=== PATIENT | female | born 1980 | race Asian ===

== ENCOUNTER 2021-03-25 07:25 | Outpatient (CLI) | payer OTHER ==
[2021-03-25 12:00] LABS: BASOPHILS % (AUTO) 0.9 %; EOSINOPHILS % (AUTO) 0.9 %; HCT - HEMATOCRIT 34.4 % (37.0-47.0); HGB - HEMOGLOBIN 10.4 g/dL (12.0-16.0); LYMPHOCYTES # (AUTO) 1.5 10^3/uL (1.5-3.5); LYMPHOCYTES % (AUTO) 44.3 %; MEAN CORPUSCULAR HEMOGLOBIN 24.1 pg (27.0-31.0); MEAN CORPUSCULAR HGB CONC 30.2 g/dL (32.0-36.0); MEAN CORPUSCULAR VOLUME 79.6 fL (81.0-99.0); MEAN PLATELET VOLUME 9.7 fL (7.9-10.8); MONOCYTES # (AUTO) 0.3 10^3/uL (0.0-1.0); MONOCYTES % (AUTO) 8.8 %; NEUTROPHILS # (AUTO) 1.5 10^3/uL (1.5-6.6); NEUTROPHILS % (AUTO) 44.8 %; PLT - PLATELET COUNT 293 10^3/uL (130-450); RED BLOOD COUNT 4.32 10^6/uL (4.20-5.40); RED CELL DISTRIBUTION WIDTH 16.1 % (12.0-15.0); WHITE BLOOD COUNT 3.4 x10^3/uL (4.8-10.8)
[2021-03-25 12:20] LABS: T4 (THYROXINE) 7.86 ug/dL (6.09-12.23)
[2021-03-25 12:24] LABS: THYROID STIMULATING HORMONE 1.7 uIU/mL (0.34-5.60)
[2021-03-25 12:33] LABS: ALBUMIN 4.5 g/dL (3.2-5.5); ALBUMIN/GLOBULIN RATIO 1.1 (1.0-2.2); ALKALINE PHOSPHATASE 58 IU/L (42-121); ALT ALANINE AMINOTRANSFERASE 18 IU/L (10-60); AST ASPARTATE AMINOTRANSFERASE 22 IU/L (10-42); BILIRUBIN,TOTAL 0.5 mg/dL (0.2-1.0); BUN - BLOOD UREA NITROGEN 11 mg/dL (6-20); CALCIUM 9.6 mg/dL (8.5-10.3); CARBON DIOXIDE - CO2 25 mmol/L (21-32); CHLORIDE 102 mmol/L (101-111); CHOL/HDL RATIO 4.1 (<4.4); CHOLESTEROL 159 mg/dL; CREATININE 0.7 mg/dL (0.4-1.0); GFR - MDRD 92 (>89); GLUCOSE 88 mg/dL (70-100); HDL CHOLESTEROL 39 mg/dL; LDL CHOLESTEROL,CALCULATED 68 mg/dL; LDL/HDL RATIO 1.7 (<4.4); POTASSIUM 3.8 mmol/L (3.5-5.0); SODIUM 138 mmol/L (135-145); TOTAL PROTEIN 8.6 g/dL (6.7-8.2); TRIGLYCERIDES 258 mg/dL; VLDL CHOLESTEROL 52 mg/dL
== END 2021-03-25 07:26 | disposition home or self-care (01) ==
LOC: LAB.N 07:25
PROVIDERS: ATTEND Registered Nurse
DX: R53.83 Other fatigue (principal)
CPT/HCPCS: 36415; 80053; 80061; 82306; 83721; 84436; 84443; 84480; 85025

== ENCOUNTER 2021-06-14 08:00 | Outpatient (CLI) | payer OTHER | END 2021-06-14 23:59 | LOC: LAB.N 08:00 | PROVIDERS: ATTEND Physician Assistant | DX: R09.81 Nasal congestion (principal); Z20.822 Contact with and (suspected) exposure to COVID-19 ==

== ENCOUNTER 2021-06-25 11:00 | Day surgery (SDC) | payer OTHER ==
[2021-06-25] MEDS ORDERED: LACTATED RINGERS 1,000 ML IV ONE (11:26)
[2021-06-25 12:03] LABS: HCG UR QUAL NEGATIVE
--- NOTE | 2021-06-25 12:47 | ANESTHESIA ---
Pre-Anesthesia VS, & Labs - Diagnosis anemia, GERD - Procedure Colonoscopy and EGD Vital Signs: Temp Pulse Resp BP Pulse Ox 37.0 C 83 16 136/88 H 99 06/25/21 11:46 06/25/21 11:46 06/25/21 11:46 06/25/21 11:46 06/25/21 11:46 Height: 5 ft 2 in Weight (kg): 66.3 kg Body Mass Index: 26.7 BMI Classification: Overweight - NPO >8 hours - Is Patient ?: No Home Medications and Allergies Home Medications: Ambulatory Orders Ascorbic Acid [Vitamin C] 1 tab PO DAILY 06/24/21 Levothyroxine Sodium [Synthroid] 1 tab PO DAILY 06/24/21 Ferrous Sulfate 325 mg PO DAILY 06/25/21 Ascorbic Acid [Vitamin C] 1 tab PO DAILY 06/24/21 Levothyroxine Sodium [Synthroid] 1 tab PO DAILY 06/24/21 Ferrous Sulfate 325 mg PO DAILY 06/25/21 Allergies/Adverse Reactions: Allergies Allergy/AdvReac Type Severity Reaction Status Date / Time aspirin Allergy Hives Verified 06/25/21 11:33 squid AdvReac Anaphylaxis Verified 06/25/21 11:33 Sunblock Allergy Hives Uncoded 06/25/21 11:33 Anes History & Medical History - Anesthetic History Family history of Anesthesia Complications: Denies Family history of Malignant Hyperthermia: Denies - Medical History Cardiovascular: reports: None Pulmonary: reports: None Gastrointestinal: reports: GERD (poorly controlled) Urinary: reports: None Neuro: reports: None Musculoskeletal: reports: None Endocrine/Autoimmune: reports: HyPOthyroidism Blood Disorders: reports: Anemia Skin: reports: None Smoking Status: Never smoker Psychosocial: reports: No issues indicated History of Cancer?: No - Surgical History Gynecologic: reports: section Exam General: Alert, Oriented x3, Cooperative, No acute distress Dental: WNL Mouth Openin Fingerbreadth Neck Mobility: Normal Mallampati classification: II Thyromental Distance: 4-6 cm Mental/Cognitive Status: Alert/Oriented X3, Normal for patient Plan Anesthesia Type: General, Total IV Consent for Procedure(s) Verified and Reviewed: Yes Code Status: Attempt Resuscitation ASA classification: 2-Mild systemic disease Is this case an emergency?: No
[2021-06-25] MEDS ORDERED: PROPOFOL 500 MG/50 ML 500 MG/50 ML VIAL ONE (12:59)
[2021-06-25] MEDS ORDERED: LIDOCAINE-MPF 2% 5 ML VIAL ONE (13:04)
[2021-06-25] MEDS ORDERED: PROPOFOL 200 MG/20 ML VIAL IVP ONE (14:15)
[2021-06-25] MEDS ORDERED: LACTATED RINGERS 400 ML IV ONE (14:38)
--- NOTE | 2021-06-25 14:43 | ANESTHESIA POST OP EVALUATION ---
Anesthesia Post Eval - Post Anesthesia Eval Vitals: Last Vital Signs Temp 36.3 C L 06/25/21 14:38 Pulse 67 06/25/21 14:38 Resp 16 06/25/21 14:38 BP 112/70 06/25/21 14:38 Pulse Ox 100 06/25/21 14:38 CV Function Including HR & BP: Stable Pain Control: Satisfactory Nausea & Vomiting: Negative Mental Status: Baseline Respiratory Status: Airway Patent Hydration Status: Satisfactory Anesthesia Complications: None
[2021-06-25 15:17] VITALS: BP 109/71
== END 2021-06-25 11:01 | disposition home or self-care (01) ==
LOC: SDS 11:00
PROVIDERS: ATTEND Surgery
PROC: 0DB78ZX Excision of Stomach, Pylorus, Via Natural or Artificial Opening Endoscopic, Diagnostic (ICD-10-PCS; 2021-06-25)
PROC: 0DB38ZX Excision of Lower Esophagus, Via Natural or Artificial Opening Endoscopic, Diagnostic (ICD-10-PCS; 2021-06-25)
PROC: 0DJD8ZZ Inspection of Lower Intestinal Tract, Via Natural or Artificial Opening Endoscopic (ICD-10-PCS; principal; 2021-06-25 12:00)
PROC: 0DB98ZX Excision of Duodenum, Via Natural or Artificial Opening Endoscopic, Diagnostic (ICD-10-PCS; 2021-06-25 12:00)
DX: D50.0 Iron deficiency anemia secondary to blood loss (chronic) (principal); K29.50 Unspecified chronic gastritis without bleeding; K21.9 Gastro-esophageal reflux disease without esophagitis; E03.9 Hypothyroidism, unspecified; R53.83 Other fatigue; E55.9 Vitamin D deficiency, unspecified
CPT/HCPCS: 43239; 45378; 81025; J7120

== ENCOUNTER 2022-03-17 11:17 | Outpatient (CLI) | payer OTHER ==
[2022-03-17 18:03] LABS: BASOPHILS % (AUTO) 1.1 %; EOSINOPHILS % (AUTO) 0.8 %; HGB - HEMOGLOBIN 12.1 g/dL (12.0-16.0); LYMPHOCYTES # (AUTO) 1.7 10^3/uL (1.5-3.5); LYMPHOCYTES % (AUTO) 45.4 %; MEAN CORPUSCULAR HEMOGLOBIN 28.1 pg (27.0-31.0); MEAN CORPUSCULAR HGB CONC 31.8 g/dL (32.0-36.0); MEAN CORPUSCULAR VOLUME 88.2 fL (81.0-99.0); MEAN PLATELET VOLUME 9.7 fL (7.9-10.8); MONOCYTES # (AUTO) 0.3 10^3/uL (0.0-1.0); MONOCYTES % (AUTO) 7.8 %; NEUTROPHILS # (AUTO) 1.7 10^3/uL (1.5-6.6); NEUTROPHILS % (AUTO) 44.6 %; PLT - PLATELET COUNT 262 10^3/uL (130-450); RED BLOOD COUNT 4.31 10^6/uL (4.20-5.40); RED CELL DISTRIBUTION WIDTH 14.1 % (12.0-15.0); WHITE BLOOD COUNT 3.7 x10^3/uL (4.8-10.8)
[2022-03-17 18:16] LABS: ALBUMIN 4.6 g/dL (3.2-5.5); ALKALINE PHOSPHATASE 59 IU/L (42-121); ALT ALANINE AMINOTRANSFERASE 21 IU/L (10-60); AST ASPARTATE AMINOTRANSFERASE 26 IU/L (10-42); BILIRUBIN,TOTAL 0.4 mg/dL (0.2-1.0); BUN - BLOOD UREA NITROGEN 10 mg/dL (6-20); CARBON DIOXIDE - CO2 26 mmol/L (21-32); CHLORIDE 102 mmol/L (101-111); CHOLESTEROL 174 mg/dL; CREATININE 0.6 mg/dL (0.4-1.0); GFR - MDRD 109 (>89); GLUCOSE 86 mg/dL (70-100); HDL CHOLESTEROL 49 mg/dL; LDL CHOLESTEROL,CALCULATED 85 mg/dL; LDL/HDL RATIO 1.7 (<4.4); POTASSIUM 3.8 mmol/L (3.5-5.0); SODIUM 135 mmol/L (135-145); TRIGLYCERIDES 200 mg/dL; VLDL CHOLESTEROL 40 mg/dL
[2022-03-17 18:17] LABS: CHOL/HDL RATIO 3.6 (<4.4)
[2022-03-17 18:27] LABS: THYROID STIMULATING HORMONE 1.82 uIU/mL (0.34-5.60)
[2022-03-17 19:01] LABS: PLATELET MORPHOLOGY 1+ LARGE PLATELETS (NORMAL)
[2022-03-17 21:41] LABS: ESTIMATED AVERAGE GLUCOSE 105 mg/dL (70-100); HEMOGLOBIN A1c% 5.3 % (4.27-6.07)
== END 2022-03-17 11:18 | disposition home or self-care (01) ==
LOC: LAB.N 11:17
PROVIDERS: ATTEND Nurse Practitioner Family
DX: Z00.01 Encounter for general adult medical examination with abnormal findings (principal); E55.9 Vitamin D deficiency, unspecified; E03.9 Hypothyroidism, unspecified
CPT/HCPCS: 36415; 80053; 80061; 82306; 83036; 83721; 84443; 85025

== ENCOUNTER 2022-03-25 14:27 | Outpatient (CLI) | payer OTHER ==
--- NOTE | 2022-03-26 16:26 | Mammography Report ---
BILATERAL DIGITAL SCREENING MAMMOGRAM 3D/2D: 03/25/2022 CLINICAL: Baseline exam. Routine screening. No prior exams were available for comparison. Both breasts are heterogeneously dense, which may obscure small masses (category c / 51-75% glandular tissue). No significant masses, calcifications, or other findings are seen in either breast. IMPRESSION: NEGATIVE There is no mammographic evidence of malignancy. A 1 year screening mammogram is recommended. Based on the Tyrer Cuzick model (a risk assessment model) the patients lifetime risk is 11.5% and he r 10 year risk is 1.8%. According to the ACR, ACS, and NCCN guidelines, an annual breast MRI exam sheela ng with mammogram is recommended if the patients lifetime risk is 20% or greater. This exam was interpreted at Station ID: [id number]. NOTE: For mammograms, a report in lay terms will be sent to the patient. Approximately 15% of breast malignancies will not be visualized mammographically. In the management of a palpable breast mass, a negative mammogram must not discourage biopsy of a clinically suspicious lesion. Electronically Signed By: Bear [email or web address]/[email or web address]:03/26/2022 11:22:35 ACR BI-RADS Category 1: Negative 3341F PARENCHYMAL PATTERN: (D) - The breast(s) demonstrate(s) heterogeneously dense fibroglandular shirley valles. BI-RADS CATEGORY: (1) - 1 RECOMMENDATION: (ANNUAL) - Recommend routine annual screening mammography. [id number] 1 year screening LATERALITY: (B)
== END 2022-03-25 14:28 | disposition home or self-care (01) ==
LOC: DI.N 14:27
DX: Z12.31 Encounter for screening mammogram for malignant neoplasm of breast (principal)

== ENCOUNTER 2023-05-06 10:21 | Outpatient (CLI) | payer OTHER ==
[2023-05-06 12:06] LABS: BASOPHILS # (AUTO) 0.1 10^3/uL (0.0-0.1); BASOPHILS % (AUTO) 0.9 %; EOSINOPHILS # (AUTO) 0.2 10^3/uL (0.0-0.7); EOSINOPHILS % (AUTO) 3.5 %; HCT - HEMATOCRIT 36.5 % (37.0-47.0); HGB - HEMOGLOBIN 11.2 g/dL (12.0-16.0); LYMPHOCYTES # (AUTO) 1.2 10^3/uL (1.5-3.5); LYMPHOCYTES % (AUTO) 21.4 %; MEAN CORPUSCULAR HEMOGLOBIN 24.1 pg (27.0-31.0); MEAN CORPUSCULAR HGB CONC 30.7 g/dL (32.0-36.0); MEAN CORPUSCULAR VOLUME 78.5 fL (81.0-99.0); MEAN PLATELET VOLUME 9.5 fL (7.9-10.8); MONOCYTES # (AUTO) 0.5 10^3/uL (0.0-1.0); MONOCYTES % (AUTO) 8.3 %; NEUTROPHILS # (AUTO) 3.5 10^3/uL (1.5-6.6); PLT - PLATELET COUNT 321 10^3/uL (130-450); RED BLOOD COUNT 4.65 10^6/uL (4.20-5.40); RED CELL DISTRIBUTION WIDTH 17.7 % (12.0-15.0); WHITE BLOOD COUNT 5.4 x10^3/uL (4.8-10.8)
[2023-05-06 12:33] LABS: ALBUMIN 4.4 g/dL (3.2-5.5); ALBUMIN/GLOBULIN RATIO 1.1 (1.0-2.2); ALKALINE PHOSPHATASE 57 IU/L (42-121); ALT ALANINE AMINOTRANSFERASE 11 IU/L (10-60); AST ASPARTATE AMINOTRANSFERASE 14 IU/L (10-42); BILIRUBIN,TOTAL 0.4 mg/dL (0.2-1.0); BUN - BLOOD UREA NITROGEN 10 mg/dL (6-20); CARBON DIOXIDE - CO2 24 mmol/L (21-32); CHLORIDE 104 mmol/L (101-111); CHOL/HDL RATIO 2.9 (<4.4); CHOLESTEROL 142 mg/dL; CREATININE 0.6 mg/dL (0.6-1.3); GFR - MDRD 109 (>89); GLUCOSE 89 mg/dL (74-104); HDL CHOLESTEROL 49 mg/dL; LDL CHOLESTEROL,CALCULATED 56 mg/dL; LDL/HDL RATIO 1.1 (<4.4); POTASSIUM 3.7 mmol/L (3.5-4.5); SODIUM 135 mmol/L (135-145); TOTAL PROTEIN 8.4 g/dL (6.4-8.9); TRIGLYCERIDES 183 mg/dL (48-352); VLDL CHOLESTEROL 37 mg/dL
[2023-05-06 12:53] LABS: ESTIMATED AVERAGE GLUCOSE 97 mg/dL (70-100)
[2023-05-06 13:04] LABS: THYROID STIMULATING HORMONE 1.63 uIU/mL (0.34-5.60)
== END 2023-05-06 10:22 | disposition home or self-care (01) ==
LOC: LAB.N 10:21
PROVIDERS: ATTEND Nurse Practitioner Family
DX: Z00.01 Encounter for general adult medical examination with abnormal findings (principal); I10 Essential (primary) hypertension; E03.9 Hypothyroidism, unspecified
CPT/HCPCS: 36415; 80053; 80061; 83036; 83721; 84443; 85025

== ENCOUNTER 2023-06-24 16:39 | Outpatient (CLI) | payer OTHER ==
--- NOTE | 2023-06-25 18:29 | Ultrasound Report ---
PROCEDURE: Pelvic w/Transvaginal INDICATIONS: MENORRHAGIA TECHNIQUE: Real-time scanning was performed of the pelvic organs, with image documentation. Additional endovagi nal scanning was necessary due to incomplete visualization of the adnexal and endometrial structures by transabdominal scanning. COMPARISON: None. FINDINGS: Uterus: Uterus is anteverted and normal in size at 11.3 x 4.7 x 5.4 cm. The myometrium is heterogen eous. The endometrium measures 7.3 mm in combined thickness. There is an echogenic endometrial focus measuring 1.4 x 0.7 x 1 cm. Nabothian cysts. Cervix and vagina are otherwise normal. Multiple uterin e fibroids. For example: -Right posterior intramural, measures 2.1 x 1.8 x 1.7 cm -Left posterior subserosal, measures 2.6 x 2 x 2.2 cm -Mid anterior intramural/subserosal, measures 2 x 1.6 x 2.1 cm Ovaries: The right ovary measures 2.6 x 2 x 2.2 cm, with a calculated ovarian volume of 7.3 cc. The left ovary measures 1.6 x 1.4 x 1.8 cm, with a calculated ovarian volume of 2.3 cc. The ovaries hav e a normal sonographic appearance. Less than 12 follicles can be seen in each ovary. No adnexal mas ses are seen. No cystic lesions measuring greater than 3 cm. Other: No pathologic free abdominal or pelvic fluid. IMPRESSION: 1. Multiple uterine fibroids, the largest of which measures 2.6 x 2 x 2.2 cm. -If clinically warranted, consider referral to Interventional Radiology for uterine fibroid embolizat ion. 2. Echogenic endometrial focus measuring 1.4 x 0.7 x 1.3 cm. Differential includes a blood clot versu s a polyp. - Consider a short interval ultrasound for further evaluation. 3. Normal sonographic appearance of the bilateral ovaries Reviewed by: Jennyfer Lyon MD on 06/25/2023 6:28 PM PST Approved by: Jennyfer Lyon MD on 06/25/2023 6:28 PM PST Station ID: [id number]
== END 2023-06-24 16:40 | disposition home or self-care (01) ==
LOC: DI 16:39
PROVIDERS: ATTEND Obstetrics & Gynecology
DX: N92.4 Excessive bleeding in the premenopausal period (principal); D25.1 Intramural leiomyoma of uterus; D25.2 Subserosal leiomyoma of uterus; R93.89 Abnormal findings on diagnostic imaging of other specified body structures

== ENCOUNTER 2023-07-31 06:39 | Day surgery (SDC) | payer OTHER ==
[2023-07-31] MEDS: LACTATED RINGERS 1,000 ML IV ONE ×3 (06:33→10:20)
[~2023-07-31 06:39] MED LIST: ceFAZolin 2 GM VIAL ONE; metroNIDAZOLE 500 MG/100 ML 500 MG/100 ML BAG ONE
[2023-07-31 06:55] LABS: HCG UR QUAL NEGATIVE
[2023-07-31] MEDS: ACETAMINOPHEN 325 MG TABLET PO ONE (07:00)
[2023-07-31] MEDS ORDERED: fentaNYL 100 MCG/2 ML VIAL ONE ×2 (07:02→09:38)
[2023-07-31] MEDS ORDERED: MIDAZOLAM 2 MG/2 ML VIAL ONE (07:02)
[2023-07-31] MEDS ORDERED: PROPOFOL 200 MG/20 ML VIAL IVP ONE (07:02)
[2023-07-31] MEDS ORDERED: LIDOCAINE-PF 2% 10 ML AMP SUBQ ONE (07:02)
[2023-07-31] MEDS ORDERED: ROCURONIUM 50 MG/5 ML VIAL ONE ×2 (07:03→08:50)
--- NOTE | 2023-07-31 07:13 | ANESTHESIA ---
Pre-Anesthesia VS, & Labs - Diagnosis uterine fibroids, abnormal bleeding - Procedure [facility] Vital Signs: Temp Pulse Resp BP Pulse Ox O2 Flow Rate 36.1 C L 72 20 126/78 100 07/31/23 06:40 07/31/23 06:40 07/31/23 06:40 07/31/23 06:40 07/31/23 06:40 Height: 5 ft 2 in Weight (kg): 68.9 kg Body Mass Index: 27.8 BMI Classification: Overweight - NPO >8 hours - Is Patient ?: No - Lab Results Lab results reviewed: Yes Home Medications and Allergies Home Medications: Ambulatory Orders Losartan/Hydrochlorothiazide [Hyzaar 50-12.5 Tablet] 0.5 tab ORAL HS 07/30/23 Multivitamin 1 tab PO DAILY 07/30/23 Ascorbic Acid [Vitamin C] 1 tab PO DAILY 06/24/21 Ferrous Sulfate 27 mg PO DAILY 06/25/21 Losartan/Hydrochlorothiazide [Hyzaar 50-12.5 Tablet] 0.5 tab ORAL HS 07/30/23 Multivitamin 1 tab PO DAILY 07/30/23 Allergies/Adverse Reactions: Allergies Allergy/AdvReac Type Severity Reaction Status Date / Time aspirin Allergy Hives Verified 07/30/23 14:04 squid AdvReac Severe Edema Verified 07/30/23 14:04 Sunblock Allergy Intermediate Hives Uncoded 07/30/23 14:07 Anes History & Medical History - Anesthetic History Anesthesia Complications: reports: No previous complications Family history of Anesthesia Complications: Denies Family history of Malignant Hyperthermia: Denies - Medical History Cardiovascular: reports: Hypertension Pulmonary: reports: None Gastrointestinal: reports: None Urinary: reports: None Neuro: reports: None Musculoskeletal: reports: None Endocrine/Autoimmune: reports: None Blood Disorders: reports: Anemia Skin: reports: None Smoking Status: Never smoker History of Cancer?: No - Surgical History Gynecologic: reports: section Exam General: Alert, Oriented x3, Cooperative Dental: WNL Mouth Openin Fingerbreadth Neck Mobility: Normal Mallampati classification: II Thyromental Distance: 4-6 cm Respiratory: Lungs clear, Normal breath sounds, No respiratory distress Cardiovascular: Regular rate Neurological: Normal speech Mental/Cognitive Status: Alert/Oriented X3, Normal for patient Cognitive Status: Within normal limits Plan Anesthesia Type: General Consent for Procedure(s) Verified and Reviewed: Yes Code Status: Attempt Resuscitation ASA classification: 2-Mild systemic disease Is this case an emergency?: No
[2023-07-31] MEDS ORDERED: fentaNYL 100 MCG/2 ML VIAL IVP PRN (07:24)
[2023-07-31] MEDS ORDERED: METOCLOPRAMIDE 10 MG/2 ML VIAL IVP PRN (07:24)
[2023-07-31] MEDS ORDERED: ATROPINE ABBOJECT 1 MG/10 ML SYRINGE IVP PRN (07:24)
[2023-07-31] MEDS ORDERED: ONDANSETRON 4 MG/2 ML VIAL IVP PRN (07:24)
[2023-07-31] MEDS ORDERED: MORPHINE 2 MG/ML CARPUJECT IVP PRN (07:24)
[2023-07-31] MEDS ORDERED: ePHEDrine 50 MG/ML VIAL IVP PRN (07:24)
[2023-07-31] MEDS ORDERED: NALOXONE 0.4 MG/ML VIAL IVP PRN (07:24)
[2023-07-31] MEDS ORDERED: METHYLENE BLUE 0.5% 50 MG/10 ML AMPULE ONE (07:27)
[2023-07-31] MEDS ORDERED: MANNITOL 20% 0 ML ONE (07:27)
[2023-07-31] MEDS ORDERED: LIDOCAINE 1%-EPI 1:100000 20 ML MDV ONE (07:27)
[2023-07-31] MEDS ORDERED: LACTATED RINGERS 1,000 ML IV SCH (08:00)
[2023-07-31] MEDS ORDERED: GLYCOPYRROLATE 1 MG/5 ML VIAL ONE (08:39)
[2023-07-31] MEDS ORDERED: PHENYLEPHRINE HCL 0.5 MG/5 ML AMPULE ONE (09:24)
[2023-07-31] MEDS ORDERED: SUGAMMADEX 200 MG/2 ML VIAL IVP ONE (09:28)
[2023-07-31] MEDS: LIDOCAINE 1%-EPI 1:100000 20 ML MDV SUBQ ONE (09:30)
[2023-07-31] MEDS ORDERED: ONDANSETRON 4 MG/2 ML VIAL ONE ×2 (09:34→11:40)
[2023-07-31] MEDS ORDERED: DEXAMETHASONE 4 MG/ML VIAL ONE (09:34)
[2023-07-31] MEDS ORDERED: KETOROLAC 30 MG/ML VIAL ONE (09:58)
--- NOTE | 2023-07-31 10:48 | ANESTHESIA POST OP EVALUATION ---
Anesthesia Post Eval - Post Anesthesia Eval Vitals: Last Vital Signs Temp 36.3 C L 07/31/23 10:35 Pulse 64 07/31/23 10:35 Resp 14 07/31/23 10:35 BP 105/70 07/31/23 10:35 Pulse Ox 100 07/31/23 10:35 O2 Flow Rate CV Function Including HR & BP: Stable Pain Control: Satisfactory Nausea & Vomiting: Negative Mental Status: Baseline Respiratory Status: Airway Patent Hydration Status: Satisfactory Anesthesia Complications: None
[2023-07-31] MEDS: HYDROmorphone 0.5 MG/0.5 ML SYRINGE IVP PRN (10:51)
[2023-07-31] MEDS ORDERED: HYDROmorphone 0.5 MG/0.5 ML SYRINGE ONE (10:51)
[2023-07-31] MEDS ORDERED: ACETAMINOPHEN 500 MG TABLET PO SCH (11:00)
[2023-07-31] MEDS: ONDANSETRON 4 MG/2 ML VIAL IVP PRN (11:40)
[2023-07-31] MEDS ORDERED: SCOPOLAMINE PATCH TOP ONE (12:05)
[2023-07-31] MEDS: SCOPOLAMINE PATCH TOP PRN (12:10)
[2023-07-31] MEDS ORDERED: oxyCODONE 5 MG TABLET ONE (12:41)
[2023-07-31] MEDS: oxyCODONE 5 MG TABLET PO PRN (12:42)
[2023-07-31 14:03] VITALS: BP 103/62; O2SAT 98
--- NOTE | 2023-07-31 16:29 | OPERATIVE REPORT ---
Operative Report - General Procedure Date: 07/31/23 Planned Procedure: Laparoscopic Assisted Vaginal Hysterectomy with bilateral salpingectomies and removal of mass at vaginal opening. Pre-Op Diagnosis: menorrhagia, fibroid uterus Procedure Performed: as above, plus peritoneal biopsy left cul-de-sac Post Op Diagnosis: as above - Procedure Note Primary Surgeon: Mara Galvin MD Secondary Surgeon: Gary Angelo MD Anesthesia Provider: Lukasz Barfield CRNA Anesthesia Technique: General ET tube Pathology: uterus, tubes, vaginal cysts, peritoneal biopsy IV Fluids (mL): 1,000 Estimated Blood Loss (mL): 50 Urine Output (mL): 100 Indications: menorrhagia, fibroid uterus bothersome for her. felt hysterectomy was best option for care. surgery, risks, benefits, recovery discussed and consents signed. Findings: soft, mildly enlarged uterus with a 2 cm fibroid on the posterior fundal area. tubes and ovaries appear normal. Right ovary appears to have just ovulated. Liver edge, stomach and gall bladder appear normal. There is an endometriosis implant on the peritoneum of the left ovarian fossa, over the ureter. Complications: none - Other Other Information/Narrative: My licensed nursing assistant was present throughout the entire case and assisted with placing trocars, retraction and tissue stabilization and closing the abdominal incisions after the case was over. Procedure: After explaining the risks and benefits, indications and alternatives, the patient was taken to the operating room where general anesthesia was induced without difficulty. She was then prepped and draped in the normal sterile fashion in the dorsal lithotomy position in [facility]. A timeout was performed. SCDs were on prior to procedure. Preoperative antibiotics were with Ancef 2 grams and Flagyl 500 mg were given. A split speculum was placed in the vagina and a single-tooth tenaculum placed on anterior lip of the cervix. A cone cannula was then placed for uterine manipulation. A fay catheter was placed in the bladder. I then changed my gloves and turned attention to the patient's abdomen. The umbilicus was infiltrated with quarter percent Marcaine with epi. A 5 mm incision was made in the umbilical base. A 5 mm optical port was placed with a 5 mm 0 degree scope. The abdomen was filled with CO2 gas to 15 mm hg of pressure. Abdominal cavity was explored with findings as noted above. Accessory ports were placed in the right and left lower quadrant under direct visualization, after infiltrating with local anesthetic. The LigaSure device was then used to seal and divide the mesosalpinx on the right. The mesosalpinx was sealed and divided. The round ligament was sealed and divided, all keeping close to the uterus. The dissection was stopped before the cardinal and uterosacral ligaments as these will be taken down from above to be sure they are affixed to the vaginal cuff for support. A similar dissection was done on the left. Instruments were then removed and attention was turned to the vagina. The uterine manipulator was removed. A posterior weighted speculum was placed in the vagina, and the cervix was grasped with two single-tooth tenacula. 0.25% Marcaine with epi was injected circumferentially around the cervix. A bovie was then used to make a circumferential incision around the cervix. Simmons scissors were then used to gently dissect the anterior and posterior surfaces of the cervix, allowing for the bladder and rectum to be dissected away. The posterior peritoneum was thinned but not opened. A figure of 8 stitch of 0 Vicryl was used to fix the peritoneum to the vaginal edge. The weight speculum was place over this edge and the stitch was clamped around the speculum holding it in place. Z clamps were used bilaterally to clamp the uterosacral ligaments. These pedicles were transected and then suture ligated with 0 Vicryl. These pedicles were then affixed to the cuff edge. The cardinal ligaments were similarly clamped cut and tied off with 0 Vicryl suture and affixed to the cuff. The anterior peritoneum was then entered. The posterior peritoneum was then able to be fully entered. The last pedicles were transected and the uterus was removed intact. All pedicles were noted to be hemostatic. The anterior cuff edge was brought together with the anterior peritoneum with a figure of 8 stitch. The vaginal cuff edges were then closed with 0 Vicryl in a running baseball type stitch, turning in the raw edges. Excellent hemostasis was noted. All instruments were then removed from the vagina. The vaginal opening was assess. There are 2 ball like masses at the introitus. This area is injected with Marcaine and elevated. The small massess are rescected and sent for pathology. The opening is closed with a running 0 Vicryl suture. Gloves were changed and attention was returned to the abdomen. The laparoscopy instruments were replaced and the surgical area were examined. There was some small areas of oozing which were cauterized. Irrigation was done. Excellent hemostasis was noted. In the left ovarian fossa there was an endometriosis implant scarring down the peritoneum overlying the ureter. This was elevated above the area and laparoscopic scissors were used to remove it. The area was not bleeding. Lots of photos were taken. Ports were opened, allowing gas to escape and then were removed and closed with 4-0 Monocryl, steristrips and bandaids.. Uterus was examined, opened, and photographed. Patient was awakened and taken recovery in stable condition. She will be discharged home later today. Counts: Correct x 2
[2023-07-31] MEDS ORDERED: DOCUSATE SODIUM 100 MG CAPSULE PO SCH (21:00)
== END 2023-07-31 06:40 | disposition home or self-care (01) ==
LOC: SDS 06:39 → MS2 10:23
PROVIDERS: ATTEND Obstetrics & Gynecology
PROC: 0UT9FZZ Resection of Uterus, Via Natural or Artificial Opening With Percutaneous Endoscopic Assistance (ICD-10-PCS; 2023-07-31)
PROC: 0UT7FZZ Resection of Bilateral Fallopian Tubes, Via Natural or Artificial Opening With Percutaneous Endoscopic Assistance (ICD-10-PCS; 2023-07-31)
PROC: 0UBG7ZZ Excision of Vagina, Via Natural or Artificial Opening (ICD-10-PCS; 2023-07-31)
PROC: 0UBF4ZX Excision of Cul-de-sac, Percutaneous Endoscopic Approach, Diagnostic (ICD-10-PCS; principal; 2023-07-31 07:30)
DX: D25.1 Intramural leiomyoma of uterus (principal); N92.4 Excessive bleeding in the premenopausal period; N88.8 Other specified noninflammatory disorders of cervix uteri; N94.89 Other specified conditions associated with female genital organs and menstrual cycle; N84.0 Polyp of corpus uteri; I10 Essential (primary) hypertension
CPT/HCPCS: 49321; 57135; 58552; 81025; A9270; J1170; J2372; J3490; J7120